=== PATIENT | female | born 1995 | race Two or more races ===

== ENCOUNTER 2022-01-02 18:44 | Emergency (ER) | payer OTHER ==
[2022-01-02 18:50] VITALS: BP 130/80; PULSE 101; RESP 18; TEMP 99.1; BMI 21.9
[2022-01-02] MEDS ORDERED: ACETAMINOPHEN 1000 MG/100 ML BAG IVPB ONE (19:42)
[2022-01-02] MEDS ORDERED: SODIUM CHLORIDE 1,000 ML IV STA (19:42)
[2022-01-02] MEDS ORDERED: ACETAMINOPHEN INJECTION 100 ML IVPB ONE (19:46)
[2022-01-02 20:00] LABS: HEMOGLOBIN 14.8 G/dL (10.7-15.3); MCH 30.4 pg (25.7-33.7); MCHC 35.3 g/dl (32.0-36.0); MEAN CELL VOLUME 86.3 fl (80-96); MEAN PLT VOLUME 8.8 fl (7.5-11.1); PLATELET COUNT 248.6 10^3/uL (134-434); RBC 4.87 10^6/uL (3.60-5.2); WHITE BLOOD COUNT 10.8 10^3/uL (4.0-10.8)
[2022-01-02 20:03] LABS: PLATELET ESTIMATE ADEQUATE
[2022-01-02 20:12] LABS: INR 1.06 (0.83-1.09); PROTHROMBIN TIME (PATIENT) 12.2 SEC (9.7-13.0)
[2022-01-02 20:15] LABS: ACTIVATED PTT 30.5 SECONDS (25.2-36.5)
[2022-01-02 20:16] LABS: ALBUMIN 3.8 g/dl (3.4-5.0); BILIRUBIN,TOTAL 0.4 mg/dl (0.2-1); CALCIUM 9.4 mg/dl (8.5-10); CREATININE 0.6 mg/dl (0.55-1.3); TOT PROT 7.4 g/dl (6.4-8.2)
== END 2022-01-02 23:40 | disposition home or self-care (01) ==
LOC: FER 18:44
PROC: 3E033NZ Introduction of Analgesics, Hypnotics, Sedatives into Peripheral Vein, Percutaneous Approach (ICD-10-PCS; principal; 2022-01-02)
PROC: 3E0337Z Introduction of Electrolytic and Water Balance Substance into Peripheral Vein, Percutaneous Approach (ICD-10-PCS; 2022-01-02)
DX: M54.9 Dorsalgia, unspecified (principal); R10.9 Unspecified abdominal pain
CPT/HCPCS: 36415; 71046-TC-FY; 71275-TC; 76700-TC; 80053; 81003; 83690; 84703; 85027; 85379; 85610; 85730; 87086; 99285-25; Q9967